=== PATIENT | female | born 1970 | race Caucasian/White ===

== ENCOUNTER 2017-02-22 12:45 | Emergency (ER) | payer BC ==
[2017-02-22] MEDS ORDERED: Sodium Chloride 0.9% 10 ML Syringe FLUSH PRN (13:14)
[2017-02-22] MEDS ORDERED: Sodium Chloride 0.9% 2.5 ML Syringe FLUSH PRN (13:14)
[2017-02-22] MEDS ORDERED: cefTRIAXone 1 GM in Premix Bag 1 BAG IV ONE (13:42)
[2017-02-22 14:00] LABS: CHLORIDE,CL 101 mmol/L (98-110); SODIUM,NA 140 mmol/L (136-146)
[2017-02-22] MEDS ORDERED: Potassium Chloride 20 MEQ Tab.ER PO ONE (14:38)
--- NOTE | 2017-02-22 14:48 | EDM.PDOC ---
ED HPI GENERAL MEDICAL PROBLEM - General Chief Complaint: Respiratory Problem Stated Complaint: cough Time Seen by Provider: 02/22/17 13:03 Source of Information: Reports: Patient History Limitations: Reports: No Limitations - History of Present Illness INITIAL COMMENTS - FREE TEXT/NARRATIVE: History of present illness: []Patient has had one day of congestion, cough, runny nose, plugged ears and body aches. Denies any vomiting or diarrhea. Didn't has breast cancer and is currently on chemotherapy her last dose was on January. Review of systems: As per history of present illness and below otherwise all systems reviewed and negative. Past medical history: As per history of present illness and as reviewed below otherwise noncontributory. Surgical history: As per history of present illness and as reviewed below otherwise noncontributory. Social history: No reported history of drug or alcohol abuse. Family history: As per history of present illness and as reviewed below otherwise noncontributory. Physical exam: General: Well developed, well nourished in NAD HEENT: Atraumatic, normocephalic, pupils reactive, negative for conjunctival pallor or scleral icterus, mucous membranes moist, throat clear, neck supple, nontender, trachea midline. Lungs: Clear to auscultation, breath sounds equal bilaterally, chest nontender. Heart: S1S2, regular, negative for clicks, rubs, or JVD. Abdomen: Soft, nondistended, nontender. Negative for masses or hepatosplenomegaly. Negative for costovertebral tenderness. Pelvis: Stable nontender. Genitourinary: Deferred. Rectal: Deferred. Extremities: Atraumatic, negative for cords or calf pain. Neurovascular unremarkable. Neuro: Awake, alert, oriented. Cranial nerves II through XII unremarkable. Cerebellum unremarkable. Motor and sensory unremarkable throughout. Exam nonfocal. Diagnostics: []Labs influenza done showing positive influenza A Therapeutics: []IV fluids Rocephin given after blood cultures done prior to return of influenza A. Impression: []Influenza A Plan: []Tamiflu as directed, follow-up PMD return if symptoms worsen or change Definitive disposition and diagnosis as appropriate pending reevaluation and review of above. - Related Data Allergies Allergy/AdvReac Type Severity Reaction Status Date / Time doxycycline Allergy Other Verified 02/22/17 13:03 erythromycin base Allergy Other Verified 02/22/17 13:03 Penicillins Allergy Other Verified 02/22/17 13:03 Sulfa (Sulfonamide Allergy Other Verified 02/22/17 13:03 Antibiotics) Home Meds: Home Meds Azithromycin [Zithromax] 250 mg PO ASDIRECTED #6 tablet 02/22/17 [Rx] Oseltamivir [Tamiflu] 75 mg PO BID #10 cap 02/22/17 [Rx] Past Medical History HEENT History: Reports: None Cardiovascular History: Reports: Hypertension Respiratory History: Reports: None Gastrointestinal History: Reports: None Genitourinary History: Reports: None COOK BARBECUE History: Reports: None Musculoskeletal History: Reports: None Neurological History: Reports: None Psychiatric History: Reports: None Endocrine/Metabolic History: Reports: Hypothyroidism Hematologic History: Reports: None Immunologic History: Reports: None Oncologic (Cancer) History: Reports: Other (See Below) Other Oncologic History: invasive ductal carcinoma right breast Dermatologic History: Reports: None - Infectious Disease History Infectious Disease History: Reports: Chicken Pox - Past Surgical History Head Surgeries/Procedures: Reports: None HEENT Surgical History: Reports: None Cardiovascular Surgical History: Reports: None Respiratory Surgical History: Reports: None GI Surgical History: Reports: None Female Surgical History: Reports: None Endocrine Surgical History: Reports: None Neurological Surgical History: Reports: None Musculoskeletal Surgical History: Reports: None Oncologic Surgical History: Reports: Other (See Below) Social & Family History - Family History Family Medical History: Noncontributory - Tobacco Use Smoking Status *Q: Never Smoker - Caffeine Use Caffeine Use: Reports: None - Recreational Drug Use Recreational Drug Use: No ED ROS GENERAL - Review of Systems Review Of Systems: See Below (See history of present illness) ED EXAM, GENERAL - Physical Exam Exam: See Below (See history of present illness) Course - Vital Signs Last Recorded V/S: Last Vital Signs Temp 100.5 F 02/22/17 14:10 Pulse 92 02/22/17 14:10 Resp 18 02/22/17 14:10 BP 154/88 H 02/22/17 14:10 Pulse Ox 98 02/22/17 14:10 - Orders/Labs/Meds Orders: Active Orders 24 hr Category Date Time Status Chest 2V [CR] Stat Exams 02/22/17 13:14 Taken CULTURE BLOOD [BC] Stat Lab 02/22/17 13:26 Received CULTURE BLOOD [BC] Stat Lab 02/22/17 13:34 Received Sodium Chloride 0.9% [Saline Flush] Med 02/22/17 13:14 Active 10 ml FLUSH ASDIRECTED PRN Sodium Chloride 0.9% [Saline Flush] Med 02/22/17 13:14 Active 2.5 ml FLUSH ASDIRECTED PRN Blood Culture x2 Reflex Set [OM.PC] Stat Oth 02/22/17 13:14 Ordered Saline Lock Insert [OM.PC] Stat Oth 02/22/17 13:14 Ordered Medication Orders Sodium Chloride (Saline Flush) 10 ml FLUSH ASDIRECTED PRN PRN Reason: Keep Vein Open Last Admin: 02/22/17 13:27 Dose: 10 ml Sodium Chloride (Saline Flush) 2.5 ml FLUSH ASDIRECTED PRN PRN Reason: Keep Vein Open Last Admin: 02/22/17 13:27 Dose: 2.5 ml Labs: Laboratory Tests 02/22/17 02/22/17 02/22/17 Range/Units 13:26 13:26 13:26 WBC 4.10 (4.0-11.0) K/uL RBC 3.37 L (4.30-5.90) M/uL Hgb 10.2 L (12.0-16.0) g/dL Hct 29.2 L (36.0-46.0) % MCV 86.6 (80.0-98.0) fL MCH 30.3 (27.0-32.0) pg MCHC 34.9 (31.0-37.0) g/dL RDW Std Deviation 43.8 (28.0-62.0) fl RDW Coeff of [place] 15 (11.0-15.0) % Plt Count 145 L (150-400) K/uL MPV 9.20 (7.40-12.00) fL Add Manual Diff YES Neutrophils % (Manual) 66 (48.0-80.0) % Band Neutrophils % 5 % Lymphocytes % (Manual) 21 (16.0-40.0) % Monocytes % (Manual) 8 (0.0-15.0) % Nucleated RBC % 0.0 /100WBC Absolute Seg Neuts 2.7 (1.4-5.7) Band Neutrophils # 0.2 Lymphocytes # (Manual) 0.9 (0.6-2.4) Monocytes # (Manual) 0.3 (0.0-0.8) Nucleated RBCs # 0 K/uL Lactate 0.7 (0.20-2.00) mmol/L Sodium 140 (136-146) mmol/L Potassium 2.9 L (3.5-5.1) mmol/L Chloride 101 (98-110) mmol/L Carbon Dioxide 26 (21-31) mmol/L BUN 10 (6.0-23.0) mg/dL Creatinine 0.8 (0.6-1.5) mg/dL Est Cr Clr Drug Dosing 72.69 mL/min Estimated GFR (MDRD) > 60.0 ml/min Glucose 96 (60-110) mg/dL Calcium 9.8 (8.8-10.8) mg/dL Total Bilirubin 0.6 (0.1-1.5) mg/dL AST 16 (5-40) IU/L ALT 17 (8-54) IU/L Alkaline Phosphatase 55 (40-150) Total Protein 6.8 (6.0-8.0) g/dL Albumin 4.0 (3.5-5.0) g/dL Globulin 2.8 (2.0-3.5) g/dL Albumin/Globulin Ratio 1.4 (1.3-2.8) Urine Color Urine Appearance Urine pH (5.0-8.0) Ur Specific [place] (1.001-1.035) Urine Protein (NEGATIVE) mg/dL Urine Glucose (UA) (NEGATIVE) mg/dL Urine Ketones (NEGATIVE) mg/dL Urine Occult Blood (NEGATIVE) Urine Nitrite (NEGATIVE) Urine Bilirubin (NEGATIVE) Urine Urobilinogen (<2.0) EU/dL Ur Leukocyte Esterase (NEGATIVE) Urine RBC (0-2/HPF) Urine WBC (0-5/HPF) Ur Epithelial Cells (NONE-FEW) Urine Bacteria (NEGATIVE) 02/22/17 Range/Units 14:02 WBC (4.0-11.0) K/uL RBC (4.30-5.90) M/uL Hgb (12.0-16.0) g/dL Hct (36.0-46.0) % MCV (80.0-98.0) fL MCH (27.0-32.0) pg MCHC (31.0-37.0) g/dL RDW Std Deviation (28.0-62.0) fl RDW Coeff of [place] (11.0-15.0) % Plt Count (150-400) K/uL MPV (7.40-12.00) fL Add Manual Diff Neutrophils % (Manual) (48.0-80.0) % Band Neutrophils % % Lymphocytes % (Manual) (16.0-40.0) % Monocytes % (Manual) (0.0-15.0) % Nucleated RBC % /100WBC Absolute Seg Neuts (1.4-5.7) Band Neutrophils # Lymphocytes # (Manual) (0.6-2.4) Monocytes # (Manual) (0.0-0.8) Nucleated RBCs # K/uL Lactate (0.20-2.00) mmol/L Sodium (136-146) mmol/L Potassium (3.5-5.1) mmol/L Chloride (98-110) mmol/L Carbon Dioxide (21-31) mmol/L BUN (6.0-23.0) mg/dL Creatinine (0.6-1.5) mg/dL Est Cr Clr Drug Dosing mL/min Estimated GFR (MDRD) ml/min Glucose (60-110) mg/dL Calcium (8.8-10.8) mg/dL Total Bilirubin (0.1-1.5) mg/dL AST (5-40) IU/L ALT (8-54) IU/L Alkaline Phosphatase (40-150) Total Protein (6.0-8.0) g/dL Albumin (3.5-5.0) g/dL Globulin (2.0-3.5) g/dL Albumin/Globulin Ratio (1.3-2.8) Urine Color YELLOW Urine Appearance CLEAR Urine pH 6.0 (5.0-8.0) Ur Specific [place] 1.015 (1.001-1.035) Urine Protein NEGATIVE (NEGATIVE) mg/dL Urine Glucose (UA) NEGATIVE (NEGATIVE) mg/dL Urine Ketones NEGATIVE (NEGATIVE) mg/dL Urine Occult Blood TRACE-INTACT (NEGATIVE) Urine Nitrite NEGATIVE (NEGATIVE) Urine Bilirubin NEGATIVE (NEGATIVE) Urine Urobilinogen 0.2 (<2.0) EU/dL Ur Leukocyte Esterase MODERATE (NEGATIVE) Urine RBC 2-4 (0-2/HPF) Urine WBC 5-10 (0-5/HPF) Ur Epithelial Cells FEW (NONE-FEW) Urine Bacteria FEW (NEGATIVE) Meds: Medications Generic Name Dose Route Start Last Admin Trade Name Freq PRN Reason Stop Dose Admin Sodium Chloride 10 ml 02/22/17 13:14 02/22/17 13:27 Saline Flush FLUSH 10 ml ASDIRECTED PRN Administration Keep Vein Open Sodium Chloride 2.5 ml 02/22/17 13:14 02/22/17 13:27 Saline Flush FLUSH 2.5 ml ASDIRECTED PRN Administration Keep Vein Open Discontinued Medications Generic Name Dose Route Start Last Admin Trade Name Freq PRN Reason Stop Dose Admin Ceftriaxone Sodium/Dextrose 1 50 mls @ 100 mls/hr 02/22/17 13:42 02/22/17 14: 06 gm/ Premix IV 02/22/17 14:11 100 mls/hr ONETIME ONE Administration Potassium Chloride 40 meq 02/22/17 14:38 02/22/17 14:51 Klor-Con M20 PO 02/22/17 14:39 40 meq ONETIME ONE Administration Departure - Departure Time of Disposition: 15:15 Disposition: Home, Self-Care 01 Condition: Good Clinical Impression: Influenza A - Discharge Information Prescriptions: Azithromycin [Zithromax] 250 mg PO ASDIRECTED #6 tablet Oseltamivir [Tamiflu] 75 mg PO BID #10 cap Referrals: Irving Horowitz MD [Primary Care Provider] - Forms: ED Department Discharge Additional Instructions: The following information is given to patients seen in the emergency department who are being discharged to home. This information is to outline your options for follow-up care. We provide all patients seen in our emergency department with a follow-up referral. The need for follow-up, as well as the timing and circumstances, are variable depending upon the specifics of your emergency department visit. If you don't have a primary care physician on staff, we will provide you with a referral. We always advise you to contact your personal physician following an emergency department visit to inform them of the circumstance of the visit and for follow-up with them and/or the need for any referrals to a consulting specialist. The emergency department will also refer you to a specialist when appropriate. This referral assures that you have the opportunity for follow-up care with a specialist. All of these measure are taken in an effort to provide you with optimal care, which includes your follow-up. Under all circumstances we always encourage you to contact your private physician who remains a resource for coordinating your care. When calling for follow-up care, please make the office aware that this follow-up is from your recent emergency room visit. If for any reason you are refused follow-up, please contact the [facility] Emergency Department at and asked to speak to the emergency department charge nurse. Tamiflu as directed, Z-Ricki given for secondary infection patient to follow up with primary care return here if symptoms worsen or change [facility] [address] [place] [id number] - My Orders Last 24 Hours: My Active Orders 02/22/17 13:14 Chest 2V [CR] Stat Sodium Chloride 0.9% [Saline Flush] 10 ml FLUSH ASDIRECTED PRN Sodium Chloride 0.9% [Saline Flush] 2.5 ml FLUSH ASDIRECTED PRN Blood Culture x2 Reflex Set [OM.PC] Stat Saline Lock Insert [OM.PC] Stat 02/22/17 13:26 CULTURE BLOOD [BC] Stat 02/22/17 13:34 CULTURE BLOOD [BC] Stat - Assessment/Plan Last 24 Hours: My Active Orders 02/22/17 13:14 Chest 2V [CR] Stat Sodium Chloride 0.9% [Saline Flush] 10 ml FLUSH ASDIRECTED PRN Sodium Chloride 0.9% [Saline Flush] 2.5 ml FLUSH ASDIRECTED PRN Blood Culture x2 Reflex Set [OM.PC] Stat Saline Lock Insert [OM.PC] Stat 02/22/17 13:26 CULTURE BLOOD [BC] Stat 02/22/17 13:34 CULTURE BLOOD [BC] Stat
--- NOTE | 2017-02-24 10:18 | CR ---
EXAM DATE: 02/22/17 PATIENT'S AGE: 46 Patient: PENNIE SONI Facility: [place], [place] Site . Site : [id number] Study: XRay Chest [id number] 2:28:10 PM Ordering Physician: Rahul Farley Final Report: Indication: Pain/SOB. Technique: PA and lateral. Comparison: None. Findings: Lungs and pleural space is clear. Heart size and pulmonary vasculature within normal limits. Port-A-Cath in the SVC. Mild dextroscoliosis. Impression: 1. Clear lungs. 2. Port-A-Cath in the SVC. 3. Mild scoliosis. Dictated by Tomas Pichardo MD @ Feb 22 2017 2:53PM (Electronic Signature) Report Signed by Proxy. TACO
== END 2017-02-22 15:20 | disposition home or self-care (01) ==
LOC: MW.ED 12:45
DX: J10.1 Influenza due to other identified influenza virus with other respiratory manifestations (principal); I10 Essential (primary) hypertension; Z88.1 Allergy status to other antibiotic agents; Z88.0 Allergy status to penicillin; Z88.2 Allergy status to sulfonamides
CPT/HCPCS: 36415; 71046; 80053; 81001; 83605; 85025; 87040; 87804; 96365; 99284; A9270; J0696

== ENCOUNTER 2017-04-19 18:51 | Inpatient (IN) | payer BC ==
[2017-04-19] MEDS ORDERED: Sodium Chloride 0.9% 1,000 ML IV ONE (19:02)
--- NOTE | 2017-04-19 19:04 | EDM.PDOC ---
ED HPI GENERAL MEDICAL PROBLEM - General Stated Complaint: PASSED OUT Time Seen by Provider: 04/19/17 19:03 Source of Information: Reports: Patient - History of Present Illness INITIAL COMMENTS - FREE TEXT/NARRATIVE: HISTORY AND PHYSICAL: History of present illness: [Patient with breast cancer and chemotherapy treatment presents after passing out for approximately 30 seconds as per . Patient enjoying her usual state of health when she suddenly passed out aline describes that her eyes rolled back there is some rhythmic movement although no postictal state, her and called the ambulance immediately on EMS arrival she was a and O 3 As stated she has a history of breast cancer last chemotherapy was on or about April 10, next is scheduled for April 30 Patient does not subjectively describe fever nausea vomiting diarrhea constipation chest pain shortness breath headache dizziness palpitation no bowel or urine symptoms Review of systems: As per history of present illness and below otherwise all systems reviewed and negative. Past medical history: As per history of present illness and as reviewed below otherwise noncontributory. Surgical history: As per history of present illness and as reviewed below otherwise noncontributory. Social history: No reported history of drug or alcohol abuse. Family history: As per history of present illness and as reviewed below otherwise noncontributory. Her graft Physical exam: HEENT: Atraumatic, normocephalic, pupils reactive, negative for conjunctival pallor or scleral icterus, mucous membranes moist, throat clear, neck supple, nontender, trachea midline. Tympanic membrane's clear Lungs: Clear to auscultation, breath sounds equal bilaterally, chest nontender. Heart: S1S2, regular, negative for clicks, rubs, or JVD. Abdomen: Soft, nondistended, nontender. Negative for masses or hepatosplenomegaly. Negative for costovertebral tenderness. Pelvis: Stable nontender. Genitourinary: Deferred. Rectal: Deferred. Extremities: Atraumatic, negative for cords or calf pain. Neurovascular unremarkable. Neuro: Awake, alert, oriented. Cranial nerves II through XII unremarkable. Cerebellum unremarkable. Motor and sensory unremarkable throughout. Exam nonfocal. Diagnostics: [CBC CMP UA hCG troponin EKG Chest [address] no contrast Orthostatic vitals ] Therapeutics: [Liter normal saline bolus then to run at 125 ]: 750 mg IV Vancomycin 1 g IV Impression: Neutropenic fever [Syncope] Possible seizure-like activity Hypokalemia Chronic history baseline Definitive disposition and diagnosis as appropriate pending reevaluation and review of above. - Related Data Allergies Allergy/AdvReac Type Severity Reaction Status Date / Time codeine Allergy Stomach Verified 04/19/17 20:56 Upset doxycycline Allergy Other Verified 04/19/17 20:56 erythromycin base Allergy Other Verified 04/19/17 20:56 Penicillins Allergy Other Verified 04/19/17 20:56 Sulfa (Sulfonamide Allergy Other Verified 04/19/17 20:56 Antibiotics) Home Meds: Home Meds Bisoprolol/Hydrochlorothiazide [Bisoprolol/HCTZ 2.5-6.25 MG] 1 tape PO DAILY 05/04 [History] Levothyroxine [Sythroid] 100 mcg PO DAILY 04/19/17 [History] Past Medical History HEENT History: Reports: None Cardiovascular History: Reports: Hypertension Respiratory History: Reports: None Gastrointestinal History: Reports: None Genitourinary History: Reports: None 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 Musculoskeletal History: Reports: None Neurological History: Reports: None Psychiatric History: Reports: None Endocrine/Metabolic History: Reports: Hypothyroidism Hematologic History: Reports: None Immunologic History: Reports: None Oncologic (Cancer) History: Reports: Other (See Below) Other Oncologic History: invasive ductal carcinoma right breast Dermatologic History: Reports: None - Infectious Disease History Infectious Disease History: Reports: Chicken Pox - Past Surgical History Head Surgeries/Procedures: Reports: None HEENT Surgical History: Reports: None Cardiovascular Surgical History: Reports: None Respiratory Surgical History: Reports: None GI Surgical History: Reports: None Female Surgical History: Reports: None Endocrine Surgical History: Reports: None Neurological Surgical History: Reports: None Musculoskeletal Surgical History: Reports: None Oncologic Surgical History: Reports: Other (See Below) Social & Family History - Family History Family Medical History: Noncontributory - Tobacco Use Smoking Status *Q: Never Smoker - Caffeine Use Caffeine Use: Reports: None - Recreational Drug Use Recreational Drug Use: No ED ROS GENERAL - Review of Systems Review Of Systems: ROS reveals no pertinent complaints other than HPI. ED EXAM, GENERAL - Physical Exam Exam: See Below Course - Vital Signs Last Recorded V/S: Last Vital Signs Temp 101.7 F H 04/19/17 19:40 Pulse 107 H 04/19/17 19:39 Resp 20 04/19/17 19:39 BP 129/68 04/19/17 19:39 Pulse Ox 97 04/19/17 19:39 Orthostatic Blood Pressure [ 101/60 Standing] Orthostatic Blood Pressure [ 112/64 Sitting] Orthostatic Blood Pressure [ 104/63 Supine] - Orders/Labs/Meds Orders: Active Orders 24 hr Category Date Time Status EKG Documentation Completion [RC] STAT Care 04/19/17 19:02 Active Orthostatic Vital Signs [RC] ASDIRECTED Care 04/19/17 19:04 Active Chest 1V Frontal [CR] Stat Exams 04/19/17 19:02 Taken Head wo Cont [CT] Stat Exams 04/19/17 19:03 Taken CULTURE BLOOD [BC] Stat Lab 04/19/17 19:24 Received CULTURE BLOOD [BC] Stat Lab 04/19/17 20:10 Received CULTURE STREP A CONFIRMATION [RM] Stat Lab 04/19/17 19:23 Results CULTURE URINE [RM] Stat Lab 04/19/17 19:40 Received STREP SCRN A RAPID W CULT CONF [RM] Stat Lab 04/19/17 19:23 Results Levofloxacin/Dextrose 5%-Water [Levaquin in D5W 750 MG/ Med 04/19/17 20:15 Active 150 ML] 750 mg Premix Bag 1 bag IV ONETIME Sodium Chloride 0.9% [Normal Saline] 1,000 ml Med 04/19/17 20:30 Active IV STAT Blood Culture x2 Reflex Set [OM.PC] Stat Oth 04/19/17 19:11 Ordered Medication Orders Levofloxacin/Dextrose 750 mg/ (Premix) 150 mls @ 100 mls/hr IV ONETIME ONE Stop: 04/19/17 21:44 Sodium Chloride (Normal Saline) 1,000 mls @ 125 mls/hr IV STAT COUNTS INCLUDE 234 BEDS AT THE [facility] Labs: Laboratory Tests 04/19/17 04/19/17 04/19/17 Range/Units 19:11 19:11 19:11 WBC 1.97 L (4.0-11.0) K/uL RBC 2.40 L (4.30-5.90) M/uL Hgb 8.2 L (12.0-16.0) g/dL Hct 23.3 L (36.0-46.0) % MCV 97.1 (80.0-98.0) fL MCH 34.2 H (27.0-32.0) pg MCHC 35.2 (31.0-37.0) g/dL RDW Std Deviation 64.8 H (28.0-62.0) fl RDW Coeff of [place] 19 H (11.0-15.0) % Plt Count 131 L (150-400) K/uL MPV 9.00 (7.40-12.00) fL Add Manual Diff YES Neutrophils % (Manual) 12 L (48.0-80.0) % Band Neutrophils % 2 % Lymphocytes % (Manual) 66 H (16.0-40.0) % Monocytes % (Manual) 19 H (0.0-15.0) % Nucleated RBC % 0.0 /100WBC Absolute Seg Neuts 0.2 L (1.4-5.7) Band Neutrophils # 0 Lymphocytes # (Manual) 1.3 (0.6-2.4) Monocytes # (Manual) 0.4 (0.0-0.8) Nucleated RBCs # 0 K/uL Lactate 1.1 (0.20-2.00) mmol/L Sodium 136 (136-145) mmol/L Potassium 2.6 L (3.5-5.1) mmol/L Chloride 98 (98-107) mmol/L Carbon Dioxide 28.0 (21.0-32.0) mmol/L BUN 8 (7.0-18.0) mg/dL Creatinine 0.9 (0.6-1.0) mg/dL Est Cr Clr Drug Dosing 63.92 mL/min Estimated GFR (MDRD) > 60.0 ml/min Glucose 107 H (74-106) mg/dL Calcium 7.7 L (8.5-10.1) mg/dL Magnesium (1.5-2.0) mg/dL Total Bilirubin 0.5 (0.2-1.0) mg/dL AST 27 (15-37) U/L ALT 29 (14-63) U/L Alkaline Phosphatase 51 (46-116) U/L Troponin I < 0.050 (0.000-0.056) ng/mL Total Protein 6.1 L (6.4-8.2) g/dL Albumin 3.0 L (3.4-5.0) g/dL Globulin 3.1 (2.0-3.5) g/dL Albumin/Globulin Ratio 1.0 L (1.3-2.8) Urine Color Urine Appearance Urine pH (5.0-8.0) Ur Specific [place] (1.001-1.035) Urine Protein (NEGATIVE) mg/dL Urine Glucose (UA) (NEGATIVE) mg/dL Urine Ketones (NEGATIVE) mg/dL Urine Occult Blood (NEGATIVE) Urine Nitrite (NEGATIVE) Urine Bilirubin (NEGATIVE) Urine Urobilinogen (<2.0) EU/dL Ur Leukocyte Esterase (NEGATIVE) Urine RBC (0-2/HPF) Urine WBC (0-5/HPF) Ur Epithelial Cells (NONE-FEW) Urine Bacteria (NEGATIVE) Urine HCG, Qual (NEGATIVE) 04/19/17 04/19/17 04/19/17 Range/Units 19:11 19:40 19:40 WBC (4.0-11.0) K/uL RBC (4.30-5.90) M/uL Hgb (12.0-16.0) g/dL Hct (36.0-46.0) % MCV (80.0-98.0) fL MCH (27.0-32.0) pg MCHC (31.0-37.0) g/dL RDW Std Deviation (28.0-62.0) fl RDW Coeff of [place] (11.0-15.0) % Plt Count (150-400) K/uL MPV (7.40-12.00) fL Add Manual Diff Neutrophils % (Manual) (48.0-80.0) % Band Neutrophils % % Lymphocytes % (Manual) (16.0-40.0) % Monocytes % (Manual) (0.0-15.0) % Nucleated RBC % /100WBC Absolute Seg Neuts (1.4-5.7) Band Neutrophils # Lymphocytes # (Manual) (0.6-2.4) Monocytes # (Manual) (0.0-0.8) Nucleated RBCs # K/uL Lactate (0.20-2.00) mmol/L Sodium (136-145) mmol/L Potassium (3.5-5.1) mmol/L Chloride (98-107) mmol/L Carbon Dioxide (21.0-32.0) mmol/L BUN (7.0-18.0) mg/dL Creatinine (0.6-1.0) mg/dL Est Cr Clr Drug Dosing mL/min Estimated GFR (MDRD) ml/min Glucose (74-106) mg/dL Calcium (8.5-10.1) mg/dL Magnesium 0.4 L (1.5-2.0) mg/dL Total Bilirubin (0.2-1.0) mg/dL AST (15-37) U/L ALT (14-63) U/L Alkaline Phosphatase (46-116) U/L Troponin I (0.000-0.056) ng/mL Total Protein (6.4-8.2) g/dL Albumin (3.4-5.0) g/dL Globulin (2.0-3.5) g/dL Albumin/Globulin Ratio (1.3-2.8) Urine Color YELLOW Urine Appearance HAZY Urine pH 7.5 (5.0-8.0) Ur Specific [place] 1.015 (1.001-1.035) Urine Protein 30 (NEGATIVE) mg/dL Urine Glucose (UA) NEGATIVE (NEGATIVE) mg/dL Urine Ketones TRACE H (NEGATIVE) mg/dL Urine Occult Blood NEGATIVE (NEGATIVE) Urine Nitrite NEGATIVE (NEGATIVE) Urine Bilirubin NEGATIVE (NEGATIVE) Urine Urobilinogen 0.2 (<2.0) EU/dL Ur Leukocyte Esterase NEGATIVE (NEGATIVE) Urine RBC 0-2 (0-2/HPF) Urine WBC 0-3 (0-5/HPF) Ur Epithelial Cells FEW (NONE-FEW) Urine Bacteria FEW (NEGATIVE) Urine HCG, Qual NEGATIVE (NEGATIVE) Meds: Medications Generic Name Dose Route Start Last Admin Trade Name Freq PRN Reason Stop Dose Admin Levofloxacin/Dextrose 750 mg/ 150 mls @ 100 mls/hr 04/19/17 20:15 Premix IV 04/19/17 21:44 ONETIME ONE Sodium Chloride 1,000 mls @ 125 mls/hr 04/19/17 20:30 Normal Saline IV STAT JESSA Discontinued Medications Generic Name Dose Route Start Last Admin Trade Name Freq PRN Reason Stop Dose Admin Acetaminophen 1,000 mg 04/19/17 19:32 04/19/17 19:40 Tylenol Extra Strength PO 04/19/17 19:33 1,000 mg ONETIME ONE Administration Sodium Chloride 1,000 mls @ 999 mls/hr 04/19/17 19:02 04/19/17 20:12 Normal Saline IV 04/19/17 20:02 999 mls/hr STAT ONE Administration Vancomycin HCl 1 gm/ Sodium 250 mls @ 250 mls/hr 04/19/17 20:15 Chloride IV 04/19/17 21:14 ONETIME ONE Potassium Chloride 40 meq 04/19/17 20:14 Klor-Con M20 PO 04/19/17 20:15 ONETIME ONE Departure - Departure Time of Disposition: 21:17 Disposition: Admitted As Inpatient 66 Condition: Poor Clinical Impression: Neutropenic fever - Discharge Information Referrals: PCP,None [Primary Care Provider] - - My Orders Last 24 Hours: My Active Orders 04/19/17 19:02 EKG Documentation Completion [RC] STAT Chest 1V Frontal [CR] Stat 04/19/17 19:03 Head wo Cont [CT] Stat 04/19/17 19:04 Orthostatic Vital Signs [RC] ASDIRECTED 04/19/17 19:11 Blood Culture x2 Reflex Set [OM.PC] Stat 04/19/17 19:23 CULTURE STREP A CONFIRMATION [RM] Stat STREP SCRN A RAPID W CULT CONF [RM] Stat 04/19/17 19:24 CULTURE BLOOD [BC] Stat 04/19/17 19:40 CULTURE URINE [RM] Stat 04/19/17 20:10 CULTURE BLOOD [BC] Stat 04/19/17 20:15 Levofloxacin/Dextrose 5%-Water [Levaquin in D5W 750 MG/150 ML] 750 mg Premix Bag 1 bag IV ONETIME 04/19/17 20:30 Sodium Chloride 0.9% [Normal Saline] 1,000 ml IV STAT - Assessment/Plan Last 24 Hours: My Active Orders 04/19/17 19:02 EKG Documentation Completion [RC] STAT Chest 1V Frontal [CR] Stat 04/19/17 19:03 Head wo Cont [CT] Stat 04/19/17 19:04 Orthostatic Vital Signs [RC] ASDIRECTED 04/19/17 19:11 Blood Culture x2 Reflex Set [OM.PC] Stat 04/19/17 19:23 CULTURE STREP A CONFIRMATION [RM] Stat STREP SCRN A RAPID W CULT CONF [RM] Stat 04/19/17 19:24 CULTURE BLOOD [BC] Stat 04/19/17 19:40 CULTURE URINE [RM] Stat 04/19/17 20:10 CULTURE BLOOD [BC] Stat 04/19/17 20:15 Levofloxacin/Dextrose 5%-Water [Levaquin in D5W 750 MG/150 ML] 750 mg Premix Bag 1 bag IV ONETIME 04/19/17 20:30 Sodium Chloride 0.9% [Normal Saline] 1,000 ml IV STAT
[2017-04-19] MEDS ORDERED: Acetaminophen 500 MG Tab PO ONE (19:32)
[2017-04-19 19:39] LABS: CHLORIDE,CL 98 mmol/L (98-107); SODIUM,NA 136 mmol/L (136-145)
[2017-04-19] MEDS ORDERED: Potassium Chloride 20 MEQ Tab.ER PO ONE (20:14)
[2017-04-19] MEDS ORDERED: Levofloxacin/Dextrose 5%-Water 750 MG in Premix Bag 1 BAG IV ONE (20:15)
[2017-04-19] MEDS ORDERED: Sodium Chloride 0.9% 1,000 ML IV SCH (20:30)
[2017-04-19] MEDS ORDERED: Vancomycin 1 GM AdvVial ONE (23:39)
[2017-04-19] MEDS ORDERED: Sodium Chloride 0.9% 250 ML ONE (23:40)
[2017-04-19] MEDS ORDERED: Sodium Chloride 0.9% with KCl 1,000 ML IV SCH (23:45)
--- NOTE | 2017-04-19 23:56 | PCM.HP ---
H&P History of Present Illness - General Admit Problem/Dx: Admission Diagnosis/Problem Admission Diagnosis/Problem Neutropenic disorder - History of Present Illness Initial Comments - Free Text/Narative: 47 yo female with pmh of breast cancer who currently undergoing chemotherapy with last infusion on Apr 09. She presents to the the ED following a syncopal event. In the ED she was noted to have neutropenic fever. She reports a dry nonproductive cough and some sinus congestion. She also has been having diarrhea for past several days. She denies any abdominal or chest pain. - Related Data Allergies/Adverse Reactions: Allergies Allergy/AdvReac Type Severity Reaction Status Date / Time codeine Allergy Stomach Verified 04/19/17 20:56 Upset doxycycline Allergy Other Verified 04/19/17 20:56 erythromycin base Allergy Other Verified 04/19/17 20:56 Penicillins Allergy Other Verified 04/19/17 20:56 Sulfa (Sulfonamide Allergy Other Verified 04/19/17 20:56 Antibiotics) Home Medications: Home Meds Bisoprolol/Hydrochlorothiazide [Bisoprolol/HCTZ 2.5-6.25 MG] 1 tape PO DAILY 05/04 [History] Levothyroxine [Sythroid] 100 mcg PO DAILY 04/19/17 [History] Past Medical History HEENT History: Reports: None Cardiovascular History: Reports: Hypertension Respiratory History: Reports: None Gastrointestinal History: Reports: None Genitourinary History: Reports: 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 Musculoskeletal History: Reports: None Neurological History: Reports: None Psychiatric History: Reports: None Endocrine/Metabolic History: Reports: Hypothyroidism Hematologic History: Reports: None Immunologic History: Reports: None Oncologic (Cancer) History: Reports: Other (See Below) Other Oncologic History: invasive ductal carcinoma right breast Dermatologic History: Reports: None - Infectious Disease History Infectious Disease History: Reports: Chicken Pox - Past Surgical History Head Surgeries/Procedures: Reports: None HEENT Surgical History: Reports: None Cardiovascular Surgical History: Reports: None Respiratory Surgical History: Reports: None GI Surgical History: Reports: None Female Surgical History: Reports: None Endocrine Surgical History: Reports: None Neurological Surgical History: Reports: None Musculoskeletal Surgical History: Reports: None Oncologic Surgical History: Reports: Other (See Below) Social & Family History - Family History Family Medical History: Noncontributory - Tobacco Use Smoking Status *Q: Never Smoker - Caffeine Use Caffeine Use: Reports: None - Recreational Drug Use Recreational Drug Use: No H&P Review of Systems - Review of Systems: Review Of Systems: ROS reveals no pertinent complaints other than HPI. Exam - Exam Exam: See Below - Vital Signs Vital Signs: Last Vital Signs Temp 37.1 C 04/19/17 23:30 Pulse 87 04/19/17 23:30 Resp 19 04/19/17 23:30 BP 122/60 04/19/17 23:30 Pulse Ox 96 04/19/17 23:30 Weight: 65 kg - Exam General: Alert, Oriented HEENT: Mucosa Moist & [place] Neck: Supple, Trachea Midline Lungs: Clear to Auscultation, Normal Respiratory Effort Cardiovascular: Regular Rate, Regular Rhythm GI/Abdominal Exam: Soft, Non-Tender, No Distention Extremities: Non-Tender, No Pedal Edema Skin: Warm, Dry, Intact - Patient Data Result Diagrams: 04/20/17 06:08 04/20/17 06:08 Imaging Impressions Last 24 hrs: CXR: clear *Q Meaningful Use (ADM) - VTE *Q VTE Criteria *Q: - Stroke *Q Stroke Criteria *Q: - AMI *Q AMI Criteria *Q: Problem List Initiated/Reviewed/Updated: Yes Orders Last 24hrs: Medication Orders Sodium Chloride (Normal Saline) 1,000 mls @ 125 mls/hr IV STAT JESSA Assessment/Plan Comment:: 47 yo female admitted with neutropenic fever. Will treat with levaquin, cultures pending. will continue to monitor.
[2017-04-20] MEDS ORDERED: Ibuprofen 200 MG Tab PO PRN (00:06)
[2017-04-20] MEDS ORDERED: Acetaminophen 325 MG Tab PO PRN (00:06)
[2017-04-20] MEDS: Heparin Sodium 5,000 Units/ML Vial SUBCUT SCH ×3 (01:46→17:58)
[2017-04-20 06:53] LABS: CHLORIDE,CL 108 mmol/L (98-107); SODIUM,NA 144 mmol/L (136-145)
[2017-04-20] MEDS: Levothyroxine 100 MCG Tab PO SCH (07:09)
[2017-04-20] MEDS ORDERED: Sodium Chloride 0.9% with KCl 1,000 ML IV SCH (08:15)
--- NOTE | 2017-04-20 09:00 | PCM.PN ---
- Review of Systems Systems Review Comment:: no fevers overnight - Patient Data Vitals - Most Recent: Last Vital Signs Temp 98.4 C H 04/20/17 08:00 Pulse 105 H 04/20/17 08:00 Resp 14 04/20/17 08:00 BP 114/62 04/20/17 08:00 Pulse Ox 98 04/20/17 08:00 Weight - Most Recent: 65 kg I&O - Last 24 Hours: Intake & Output 04/19/17 04/20/17 04/20/17 22:59 06:59 14:59 Intake Total 990 Output Total 1300 Balance -310 Lab Results Last 24 Hours: Laboratory Results - last 24 hr 04/20/17 04/20/17 Range/Units 06:08 06:08 WBC 1.56 L (4.0-11.0) K/uL RBC 2.13 L (4.30-5.90) M/uL Hgb 7.1 L (12.0-16.0) g/dL Hct 20.9 L (36.0-46.0) % MCV 98.1 H (80.0-98.0) fL MCH 33.3 H (27.0-32.0) pg MCHC 34.0 (31.0-37.0) g/dL RDW Std Deviation 67.7 H (28.0-62.0) fl RDW Coeff of [place] 19 H (11.0-15.0) % Plt Count 111 L (150-400) K/uL MPV 9.70 (7.40-12.00) fL Add Manual Diff YES Nucleated RBC % 0.0 /100WBC Nucleated RBCs # 0 K/uL Sodium 144 (136-145) mmol/L Potassium 3.2 L (3.5-5.1) mmol/L Chloride 108 H (98-107) mmol/L Carbon Dioxide 27.5 (21.0-32.0) mmol/L BUN 6 L (7.0-18.0) mg/dL Creatinine 0.7 (0.6-1.0) mg/dL Est Cr Clr Drug Dosing 82.16 mL/min Estimated GFR (MDRD) > 60.0 ml/min Glucose 85 (74-106) mg/dL Calcium 7.1 L (8.5-10.1) mg/dL Med Orders - Current: Current Medications Acetaminophen (Tylenol) 650 mg PO Q4H PRN PRN Reason: Pain (Mild 1-3)/fever Heparin Sodium (Porcine) (Heparin Sodium) 5,000 units SUBCUT Q8H [facility] Last Admin: 04/20/17 01:46 Dose: 5,000 units Sodium Chloride (Normal Saline) 1,000 mls @ 125 mls/hr IV STAT JESSA Levofloxacin/Dextrose 750 mg/ (Premix) 150 mls @ 100 mls/hr IV Q24H JESSA Potassium Chloride/Sodium Chloride (Normal Saline With 40 Meq Kcl) 1,000 mls @ 150 mls/hr IV ASDIRECTED [facility] Stop: 04/20/17 14:54 Ibuprofen (Motrin) 200 mg PO Q6H PRN PRN Reason: Pain (mild 1-3) Levothyroxine Sodium (Synthroid) 100 mcg PO ACBREAKFAST [facility] Last Admin: 04/20/17 07:09 Dose: 100 mcg Ondansetron HCl (Zofran) 4 mg IVPUSH Q4H PRN PRN Reason: Nausea Discontinued Medications Acetaminophen (Tylenol Extra Strength) 1,000 mg PO ONETIME ONE Stop: 04/19/17 19:33 Last Admin: 04/19/17 19:40 Dose: 1,000 mg Heparin Sodium (Porcine) (Heparin Lock Flush 100 Units/Ml) Confirm Administered Dose 500 units .ROUTE .STK-MED ONE Stop: 04/19/17 21:48 Last Admin: 04/19/17 23:36 Dose: Not Given Sodium Chloride (Normal Saline) 1,000 mls @ 999 mls/hr IV STAT ONE Stop: 04/19/17 20:02 Last Admin: 04/19/17 20:12 Dose: 999 mls/hr Levofloxacin/Dextrose 750 mg/ (Premix) 150 mls @ 100 mls/hr IV ONETIME ONE Stop: 04/19/17 21:44 Last Admin: 04/19/17 21:34 Dose: 100 mls/hr Vancomycin HCl 1 gm/ Sodium (Chloride) 250 mls @ 250 mls/hr IV ONETIME ONE Stop: 04/19/17 21:14 Last Admin: 04/20/17 00:17 Dose: 250 mls/hr Sodium Chloride (Normal Saline) Confirm Administered Dose 250 mls @ as directed .ROUTE .STK-MED ONE Stop: 04/19/17 23:41 Last Admin: 04/19/17 23:48 Dose: Not Given Potassium Chloride/Sodium Chloride (Normal Saline With 40 Meq Kcl) 1,000 mls @ 150 mls/hr IV ASDIRECTED JESSA Stop: 04/20/17 06:24 Last Admin: 04/20/17 01:46 Dose: 150 mls/hr Potassium Chloride (Klor-Con M20) 40 meq PO ONETIME ONE Stop: 04/19/17 20:15 Last Admin: 04/19/17 21:33 Dose: 40 meq Vancomycin HCl (Vancocin) Confirm Administered Dose 1 gm .ROUTE .STK-MED ONE Stop: 04/19/17 23:40 Last Admin: 04/19/17 23:48 Dose: Not Given - Exam General: Alert, Oriented Neck: Supple Lungs: Clear to Auscultation, Normal Respiratory Effort Cardiovascular: Regular Rate, Regular Rhythm GI/Abdominal Exam: Soft, Non-Tender Extremities: No Pedal Edema Skin: Warm, Dry, Intact Neurological: No New Focal Deficit - Problem List Review Problem List Initiated/Reviewed/Updated: Yes - My Orders Last 24 Hours: My Active Orders 04/20/17 00:06 Oxygen Therapy [RC] PRN VTE/DVT Education [RC] PER UNIT ROUTINE Vital Signs [RC] Q4H Acetaminophen [Tylenol] 650 mg PO Q4H PRN Ibuprofen [Motrin] 200 mg PO Q6H PRN Ondansetron [Zofran] 4 mg IVPUSH Q4H PRN Sequential Compression Device [OM.PC] Per Unit Routine Resuscitation Status Routine 04/20/17 00:07 Antiembolic Devices [RC] PER UNIT ROUTINE 04/20/17 00:22 Telemetry Monitoring [Cardiac Monitoring] [RC] Q8H 04/20/17 01:00 Heparin Sodium 5,000 units SUBCUT Q8H 04/20/17 06:08 CBC WITH AUTO DIFF [HEME] AM 04/20/17 07:30 Levothyroxine [Synthroid] 100 mcg PO ACBREAKFAST 04/20/17 08:15 Sodium Chloride 0.9% with KCl [Normal Saline with 40 mEq KCl] 1,000 ml IV ASDIRECTED 04/20/17 08:57 RED BLOOD CELLS LP [BBK] Routine Transfuse Red Blood Cells [COMM] Routine 04/20/17 20:00 Levofloxacin/Dextrose 5%-Water [Levaquin in D5W 750 MG/150 ML] 750 mg Premix Bag 1 bag IV Q24H 04/20/17 Breakfast Neutropenic [DIET] 04/21/17 05:11 BASIC METABOLIC PANEL,BMP [CHEM] AM CBC WITH AUTO DIFF [HEME] AM 04/22/17 05:11 BASIC METABOLIC PANEL,BMP [CHEM] AM CBC WITH AUTO DIFF [HEME] AM - Plan Plan:: 47 yo female admitted with neutropenic fever. Will continue levaquin. Following cultures. Hgb is 7.1 today. Will transfuse two units of pRBC due to anemia from chemotherapy.
[2017-04-20] MEDS ORDERED: Sodium Chloride 0.9% 10 ML Syringe FLUSH PRN (17:15)
[2017-04-20] MEDS ORDERED: Sodium Chloride 0.9% 2.5 ML Syringe FLUSH PRN (17:15)
[2017-04-20] MEDS ORDERED: Loperamide 2 MG Cap PO ONE (18:00)
[2017-04-20] MEDS ORDERED: Levofloxacin/Dextrose 5%-Water 750 MG in Premix Bag 1 BAG IV SCH (20:00)
[2017-04-21] MEDS: Heparin Sodium 5,000 Units/ML Vial SUBCUT SCH ×2 (00:22→09:01)
[2017-04-21] MEDS ORDERED: Loperamide 2 MG Cap PO PRN ×2 (05:39→09:05)
[2017-04-21] MEDS: Levothyroxine 100 MCG Tab PO SCH ×2 (06:03→06:32)
[2017-04-21 06:27] LABS: CHLORIDE,CL 105 mmol/L (98-107); SODIUM,NA 142 mmol/L (136-145)
--- NOTE | 2017-04-21 06:29 | CT ---
EXAM DATE: 04/19/17 PATIENT'S AGE: 47 [facility] Facility: [place], [place] Site . Site : 1970 Study: CT Head WO CONT [id number] 8:46:50 PM Ordering Physician: Juli Lock Final Report: INDICATION: Syncope TECHNIQUE: CT Head without i.v. contrast. CONTRAST: None COMPARISON: None FINDINGS: CSF spaces: The ventricles are normal for age. Brain: No evidence of mass, acute infarction or hemorrhage is seen. No mass- effect or midline shift is seen. The brain parenchyma is otherwise normal in appearance with preservation of the edward-white matter junction. Calvarium: The visualized paranasal sinuses are well aerated. Trace right mastoid effusion noted. The visualized orbits are grossly unremarkable. The calvarium is unremarkable in appearance with no fractures identified. IMPRESSION: 1. No evidence of acute infarction, intracranial hemorrhage, or mass-effect seen. 2. Trace right mastoid effusion noted. Dictated by: Harman Kincaid MD @ 04/19/2017 20:51:16 (Electronic Signature) Report Signed by Proxy. [facility]
--- NOTE | 2017-04-21 06:32 | CR ---
EXAM DATE: 04/19/17 PATIENT'S AGE: 47 Patient: PENNIE SONI Facility: [place], [place] Site . Site : 1970 Study: XRay Chest [id number]/3/[id number] 8:55:42 PM Ordering Physician: Juli Lock Final Report: INDICATION: Pain, shortness of breath, syncope TECHNIQUE: Chest radiograph 1 view COMPARISON: 02/22/2017 FINDINGS: Mediastinum: The heart silhouette is normal in size and morphology. The mediastinum is normal in appearance. New right Port-A-Cath is seen with the tip in the SVC. Lungs: There is a 6 mm density in the left apex which may represent a granuloma. No sign of pleural effusion seen. No pneumothorax is identified. Bones and soft tissue: Mild dextroscoliosis is present. IMPRESSION: 1. No acute cardiopulmonary disease is seen. Dictated by Harman Kincaid MD @ 04/19/2017 9:06:07 PM Dictated by: Harman Kincaid MD @ 04/19/2017 21:06:14 (Electronic Signature) Report Signed by Proxy. [facility]
[2017-04-21] MEDS: Ondansetron 4 MG/2 ML SDV IVPUSH PRN ×2 (07:35→11:40)
[2017-04-21] MEDS ORDERED: Potassium Chloride 20 MEQ Tab.ER PO ONE (08:31)
[2017-04-21] MEDS ORDERED: Magnesium Sulfate/Water 4 GM in Premix Bag 1 BAG IV ONE (08:31)
--- NOTE | 2017-04-21 14:30 | PCM.DCSUM1 ---
Discharge Summary - Hospital Course Brief History: 47 yo female with pmh of breast cancer who currently undergoing chemotherapy with last infusion on Apr 09. She presents to the the ED following a syncopal event. In the ED she was noted to have neutropenic fever. She reports a dry nonproductive cough and some sinus congestion. She also has been having diarrhea for past several days. She denies any abdominal or chest pain. - Discharge Data Discharge Date: 04/21/17 Discharge Disposition: Home, Self-Care 01 Condition: Good - Discharge Diagnosis/Problem(s) (1) Hypomagnesemia SNOMED Code(s): 556762789 ICD Code: E83.42 - HYPOMAGNESEMIA Status: Acute Current Visit: Yes (2) Hypokalemia SNOMED Code(s): 72626666 ICD Code: E87.6 - HYPOKALEMIA Status: Acute Current Visit: Yes (3) Nausea SNOMED Code(s): 376396507 ICD Code: R11.0 - NAUSEA Status: Acute Current Visit: Yes (4) UTI (urinary tract infection) SNOMED Code(s): 34020688 ICD Code: N39.0 - URINARY TRACT INFECTION, SITE NOT SPECIFIED Status: Acute Current Visit: Yes Qualifiers: Urinary tract infection type: acute cystitis Hematuria presence: without hematuria Qualified Code(s): N30.00 - Acute cystitis without hematuria (5) Neutropenic fever SNOMED Code(s): 493797166 ICD Code: D70.9 - NEUTROPENIA, UNSPECIFIED; R50.81 - FEVER PRESENTING WITH CONDITIONS CLASSIFIED ELSEWHERE Status: Acute Current Visit: Yes (6) Breast CA SNOMED Code(s): 256210373 ICD Code: C50.919 - MALIGNANT NEOPLASM OF UNSP SITE OF UNSPECIFIED FEMALE BREAST Status: Chronic Current Visit: Yes (7) Thrombocytopenia SNOMED Code(s): 585380671 ICD Code: D69.6 - THROMBOCYTOPENIA, UNSPECIFIED Status: Acute Current Visit: Yes - Patient Instructions Diet: Regular Diet as Tolerated, Drink 8-10+ Glasses/Day Activity: As Tolerated Showering/Bathing: May Shower Notify Provider of: Fever, Increased Pain, Swelling and Redness, Drainage, Nausea and/or Vomiting Other/Special Instructions: Encouraged to call Oncology if unable to tolerate fluids/ diet at home and come in early for labwork. Scheduled for labwork with Oncology on Friday to check CBC, BMP and MG. - Discharge Plan Prescriptions/Med Rec: Levofloxacin [Levaquin] 750 mg PO DAILY #5 tab Magnesium Oxide 400 mg PO BID #60 tab Potassium Chloride 20 meq PO BID #30 tablet.er Home Medications: Home Meds Levothyroxine [Synthroid] 100 mcg PO DAILY 04/19/17 [History] Bisoprolol/Hydrochlorothiazide [Bisoprolol/HCTZ 2.5-6.25 MG] 1 tape PO DAILY #0 04/21/17 [Rx] Levofloxacin [Levaquin] 750 mg PO DAILY #5 tab 04/21/17 [Rx] Magnesium Oxide 400 mg PO BID #60 tab 04/21/17 [Rx] Potassium Chloride 20 meq PO BID #30 tablet.er 04/21/17 [Rx] Patient Handouts: Potassium Salts tablets, extended-release tablets or capsules , Sodium picosulfate; Magnesium oxide; Anhydrous citric acid oral solution, Levofloxacin tablets, Neutropenia Referrals: PCP,None [Primary Care Provider] - (Follow up with Oncology on Friday for labwork) - Discharge Summary/Plan Comment DC Time >30 min.: No Discharge Summary/Plan Comment: Discharge Diagnoses: Neutropenic fever-resolved UTI Pancytopenia Thrombocytopenia Anemia- transfused 2 pRBCs. Hypomagnesemia Hypokalemia Diarrhea- chemotherapy induced Nausea- chemotherapy induced Cheli was treated with Levaquin IV daily for neutropenic fevers. BC returned negative from venous and port draws. Strep negative and influenza negative. UC returned with mixed cory >100,000. ANC 1,000 today. She is very eager for discharge. Afebrile. During her stay hgb did drop to 7.1 and she was transfused 2 units PRBCs and Hgb elevated to 10.7 today. Thrombocytopenia noted, 81,000 today, no bleeding noted. Hypomagnesemia and hypokalemia noted. Conitnues to have intermittent loose stools and takes Immodium for this at home. None this morning. Nausea continues intermittently, she is able to keep fluids down and some food. We replaced Mag and K+ today. Magnesium increased to 1.8 this afternoon. I will discharge her home today with Levaquin 750 mg for 5 more days , 7 day total course for neutropenic fever and UTI. She will also be given Potassium 20 meq BID and Magnesium 400 mg BID. She was educated to keep up on fluids and to monitor nausea and diarrhea. If things worsen again at home she is to notify Oncology clinic. She will have repeat blood work this Friday with Oncology. She is to monitor for signs of bleeding including petechial rash. She is to return to ED or clinic if concerns should arise. Follow up as scheduled with Oncology. - General Info Date of Service: 04/21/17 Admission Dx/Problem (Free Text: Admission Diagnosis/Problem Admission Diagnosis/Problem Neutropenic disorder Subjective Update: Feeling better today, still slightly nauseated. Keeping fluids down and some food. Taking Zofran nearly scheduled to help with this. No fevers, chest pain or abdominal pain. Loose stools intermittently, but none this morning. Functional Status: Reports: Pain Controlled, Tolerating Diet, Ambulating, Urinating - Review of Systems General: Reports: Fatigue. Denies: Fever HEENT: Reports: No Symptoms. Denies: Glasses, Headaches, Sore Throat, Visual Changes Pulmonary: Reports: Cough. Denies: Shortness of Breath, Sputum, Hemoptysis Cardiovascular: Reports: No Symptoms. Denies: Chest Pain, Edema, Lightheadedness Gastrointestinal: Reports: Decreased Appetite, Diarrhea, Nausea. Denies: Abdominal Pain, Vomiting Genitourinary: Reports: No Symptoms. Denies: Dysuria, Frequency, Burning, Pain Musculoskeletal: Reports: No Symptoms Neurological: Reports: No Symptoms. Denies: Confusion Psychiatric: Reports: No Symptoms. Denies: Confusion - Patient Data Vitals - Most Recent: Last Vital Signs Temp 98.5 F 04/21/17 12:00 Pulse 100 04/21/17 12:00 Resp 20 04/21/17 12:00 BP 123/77 04/21/17 12:00 Pulse Ox 97 04/21/17 12:00 Weight - Most Recent: 65 kg I&O - Last 24 hours: Intake & Output 04/20/17 04/21/17 04/21/17 22:59 06:59 14:59 Intake Total 1110 1625 100 Output Total 1150 1500 Balance -40 125 100 Lab Results - Last 24 hrs: Laboratory Results - last 24 hr 04/20/17 04/21/17 04/21/17 Range/Units 09:08 05:56 05:56 WBC 2.74 L (4.0-11.0) K/uL RBC 3.33 L (4.30-5.90) M/uL Hgb 10.7 L (12.0-16.0) g/dL Hct 30.5 L (36.0-46.0) % MCV 91.6 (80.0-98.0) fL MCH 32.1 H (27.0-32.0) pg MCHC 35.1 (31.0-37.0) g/dL RDW Std Deviation 64.3 H (28.0-62.0) fl RDW Coeff of [place] 20 H (11.0-15.0) % Plt Count 81 L (150-400) K/uL MPV 9.80 (7.40-12.00) fL Add Manual Diff YES Neutrophils % (Manual) 36 L (48.0-80.0) % Band Neutrophils % 5 % Lymphocytes % (Manual) 42 H (16.0-40.0) % Monocytes % (Manual) 17 H (0.0-15.0) % Nucleated RBC % 0.0 /100WBC Absolute Seg Neuts 1.0 L (1.4-5.7) Band Neutrophils # 0.1 Lymphocytes # (Manual) 1.2 (0.6-2.4) Monocytes # (Manual) 0.5 (0.0-0.8) Nucleated RBCs # 0 K/uL Absolute Blast Cells 0 Sodium 142 (136-145) mmol/L Potassium 3.2 L (3.5-5.1) mmol/L Chloride 105 (98-107) mmol/L Carbon Dioxide 26.8 (21.0-32.0) mmol/L BUN 5 L (7.0-18.0) mg/dL Creatinine 0.8 (0.6-1.0) mg/dL Est Cr Clr Drug Dosing 71.89 mL/min Estimated GFR (MDRD) > 60.0 ml/min Glucose 101 (74-106) mg/dL Calcium 7.8 L (8.5-10.1) mg/dL Magnesium (1.5-2.0) mg/dL Blood Type A POSITIVE Antibody Screen NEGATIVE Crossmatch See Detail 04/21/17 04/21/17 Range/Units 05:56 13:19 WBC (4.0-11.0) K/uL RBC (4.30-5.90) M/uL Hgb (12.0-16.0) g/dL Hct (36.0-46.0) % MCV (80.0-98.0) fL MCH (27.0-32.0) pg MCHC (31.0-37.0) g/dL RDW Std Deviation (28.0-62.0) fl RDW Coeff of [place] (11.0-15.0) % Plt Count (150-400) K/uL MPV (7.40-12.00) fL Add Manual Diff Neutrophils % (Manual) (48.0-80.0) % Band Neutrophils % % Lymphocytes % (Manual) (16.0-40.0) % Monocytes % (Manual) (0.0-15.0) % Nucleated RBC % /100WBC Absolute Seg Neuts (1.4-5.7) Band Neutrophils # Lymphocytes # (Manual) (0.6-2.4) Monocytes # (Manual) (0.0-0.8) Nucleated RBCs # K/uL Absolute Blast Cells Sodium (136-145) mmol/L Potassium (3.5-5.1) mmol/L Chloride (98-107) mmol/L Carbon Dioxide (21.0-32.0) mmol/L BUN (7.0-18.0) mg/dL Creatinine (0.6-1.0) mg/dL Est Cr Clr Drug Dosing mL/min Estimated GFR (MDRD) ml/min Glucose (74-106) mg/dL Calcium (8.5-10.1) mg/dL Magnesium 0.4 L 1.8 (1.5-2.0) mg/dL Blood Type Antibody Screen Crossmatch Med Orders - Current: Current Medications Acetaminophen (Tylenol) 650 mg PO Q4H PRN PRN Reason: Pain (Mild 1-3)/fever Last Admin: 04/20/17 11:39 Dose: 650 mg Heparin Sodium (Porcine) (Heparin Sodium) 5,000 units SUBCUT Q8H [facility] Last Admin: 04/21/17 09:01 Dose: Not Given Sodium Chloride (Normal Saline) 1,000 mls @ 125 mls/hr IV STAT JESSA Levofloxacin/Dextrose 750 mg/ (Premix) 150 mls @ 100 mls/hr IV Q24H [facility] Last Admin: 04/20/17 20:03 Dose: 100 mls/hr Ibuprofen (Motrin) 200 mg PO Q6H PRN PRN Reason: Pain (mild 1-3) Levothyroxine Sodium (Synthroid) 100 mcg PO ACBREAKFAST JESSA Last Admin: 04/21/17 06:32 Dose: Not Given Loperamide HCl (Imodium) 2 mg PO ASDIRECTED PRN PRN Reason: Diarrhea Ondansetron HCl (Zofran) 4 mg IVPUSH Q4H PRN PRN Reason: Nausea Last Admin: 04/21/17 11:40 Dose: 4 mg Sodium Chloride (Saline Flush) 10 ml FLUSH ASDIRECTED PRN PRN Reason: Keep Vein Open Sodium Chloride (Saline Flush) 2.5 ml FLUSH ASDIRECTED PRN PRN Reason: Keep Vein Open Discontinued Medications Acetaminophen (Tylenol Extra Strength) 1,000 mg PO ONETIME ONE Stop: 04/19/17 19:33 Last Admin: 04/19/17 19:40 Dose: 1,000 mg Heparin Sodium (Porcine) (Heparin Lock Flush 100 Units/Ml) Confirm Administered Dose 500 units .ROUTE .STK-MED ONE Stop: 04/19/17 21:48 Last Admin: 04/19/17 23:36 Dose: Not Given Sodium Chloride (Normal Saline) 1,000 mls @ 999 mls/hr IV STAT ONE Stop: 04/19/17 20:02 Last Admin: 04/19/17 20:12 Dose: 999 mls/hr Levofloxacin/Dextrose 750 mg/ (Premix) 150 mls @ 100 mls/hr IV ONETIME ONE Stop: 04/19/17 21:44 Last Admin: 04/19/17 21:34 Dose: 100 mls/hr Vancomycin HCl 1 gm/ Sodium (Chloride) 250 mls @ 250 mls/hr IV ONETIME ONE Stop: 04/19/17 21:14 Last Admin: 04/20/17 00:17 Dose: 250 mls/hr Sodium Chloride (Normal Saline) Confirm Administered Dose 250 mls @ as directed .ROUTE .STK-MED ONE Stop: 04/19/17 23:41 Last Admin: 04/19/17 23:48 Dose: Not Given Potassium Chloride/Sodium Chloride (Normal Saline With 40 Meq Kcl) 1,000 mls @ 150 mls/hr IV ASDIRECTED JESSA Stop: 04/20/17 06:24 Last Admin: 04/20/17 01:46 Dose: 150 mls/hr Potassium Chloride/Sodium Chloride (Normal Saline With 40 Meq Kcl) 1,000 mls @ 150 mls/hr IV ASDIRECTED [facility] Stop: 04/20/17 14:54 Last Admin: 04/20/17 09:11 Dose: 150 mls/hr Magnesium Sulfate 4 gm/ Premix 100 mls @ 50 mls/hr IV ONETIME ONE Stop: 04/21/17 10:30 Last Admin: 04/21/17 08:53 Dose: 50 mls/hr Loperamide HCl (Imodium) 2 mg PO ONETIME ONE Stop: 04/20/17 18:01 Last Admin: 04/20/17 18:10 Dose: 2 mg Loperamide HCl (Imodium) 2 mg PO Q8H PRN PRN Reason: Diarrhea Last Admin: 04/21/17 06:02 Dose: 2 mg Potassium Chloride (Klor-Con M20) 40 meq PO ONETIME ONE Stop: 04/19/17 20:15 Last Admin: 04/19/17 21:33 Dose: 40 meq Potassium Chloride (Klor-Con M20) 40 meq PO ONETIME ONE Stop: 04/21/17 08:32 Last Admin: 04/21/17 08:51 Dose: 40 meq Vancomycin HCl (Vancocin) Confirm Administered Dose 1 gm .ROUTE .STK-MED ONE Stop: 04/19/17 23:40 Last Admin: 04/19/17 23:48 Dose: Not Given - Exam General: Reports: Alert, Oriented, Cooperative, No Acute Distress Lungs: Reports: Clear to Auscultation, Normal Respiratory Effort Cardiovascular: Reports: Regular Rate, Regular Rhythm GI/Abdominal Exam: Normal Bowel Sounds, Soft, Non-Tender, No Organomegaly, No Distention, No Abnormal Bruit, No Mass, Pelvis Stable Extremities: Normal Inspection, Normal Range of Motion, Non-Tender, No Pedal Edema, Normal Capillary Refill Neurological: Reports: No New Focal Deficit Psy/Mental Status: Reports: Alert, Normal Affect, Normal Mood *Q Meaningful Use (DIS) - VTE *Q VTE Criteria *Q: - Stroke *Q Stroke Criteria *Q: - AMI *Q AMI Criteria *Q:
[2017-04-21] MEDS ORDERED: Heparin Sodium 100 Units/ML 3 ML Syringe FLUSH ONE (15:23)
== END 2017-04-21 15:55 | disposition home or self-care (01) | DRG 660 ==
LOC: MW.ED 18:51 → MW.MS 21:18
PROVIDERS: ADMIT Internal Medicine; ATTEND Internal Medicine
PROC: 30233N1 Transfusion of Nonautologous Red Blood Cells into Peripheral Vein, Percutaneous Approach (ICD-10-PCS; principal; 2017-04-20)
DX: D70.9 Neutropenia, unspecified (principal); N30.00 Acute cystitis without hematuria; D61.818 Other pancytopenia; D69.6 Thrombocytopenia, unspecified; E83.42 Hypomagnesemia; E87.6 Hypokalemia; D64.81 Anemia due to antineoplastic chemotherapy; R11.0 Nausea; C50.919 Malignant neoplasm of unspecified site of unspecified female breast; K52.1 Toxic gastroenteritis and colitis; T45.1X5A Adverse effect of antineoplastic and immunosuppressive drugs, initial encounter; Y92.019 Unspecified place in single-family (private) house as the place of occurrence of the external cause; I10 Essential (primary) hypertension; E03.9 Hypothyroidism, unspecified; Z88.0 Allergy status to penicillin; Z88.2 Allergy status to sulfonamides; Z88.8 Allergy status to other drugs, medicaments and biological substances; Z79.899 Other long term (current) drug therapy
CPT/HCPCS: 36415; 36430; 70450; 70450-26; 71045; 71045-26; 80048; 80053; 81001; 81025; 83605; 83735; 84484; 85025; 86850; 86900; 86901; 86920; 86921; 86922; 87040; 87081; 87086; 87804; 87880; 93005; 96361; 96365; 99284; 99285-25; A9270-GY; J1642; J1644; J1956; J2405; J3370; J3475; J3480; J7040; J7050; P9016